=== PATIENT | female | born 1975 | race African-American/Black ===

== ENCOUNTER 2023-12-04 06:19 | Day surgery (SDC) | payer OTHER ==
[2023-12-03 09:20] VITALS: BMI 39.5
[2023-12-04] MEDS ORDERED: PROPOFOL 40 ML ONE (08:08)
[2023-12-04] MEDS ORDERED: PROPOFOL 20 ML ONE (08:48)
== END 2023-12-04 09:27 | disposition home or self-care (01) ==
LOC: CSHSDC 06:19
PROVIDERS: ATTEND Internal Medicine Gastroenterology
PROC: 0DJD8ZZ Inspection of Lower Intestinal Tract, Via Natural or Artificial Opening Endoscopic (ICD-10-PCS; principal; 2023-12-04)
DX: Z12.11 Encounter for screening for malignant neoplasm of colon (principal); K64.8 Other hemorrhoids; Z85.3 Personal history of malignant neoplasm of breast; Z90.10 Acquired absence of unspecified breast and nipple; Z87.891 Personal history of nicotine dependence; Z98.890 Other specified postprocedural states
CPT/HCPCS: J2704

== ENCOUNTER 2023-12-22 10:37 | Outpatient (CLI) | payer OTHER | END 2023-12-22 10:38 | disposition home or self-care (01) | LOC: CSHMAMMO 10:37 | PROVIDERS: ATTEND Internal Medicine | DX: Z13.820 Encounter for screening for osteoporosis (principal); C50.411 Malignant neoplasm of upper-outer quadrant of right female breast | CPT/HCPCS: 77080 ==